=== PATIENT | female | born 1960 ===

== ENCOUNTER 2018-08-15 12:19 | Outpatient (CLI) | payer OTHER ==
[~2018-08-15] VITALS: Ht 167.6 cm; Wt 79.4 kg
[~2018-08-15 12:19] MED LIST: ALBUTEROL0.63 MG/3; LAMICTAL200 M1; LEXAPRO20 MG; RISPERDAL1 MG; SEROQUEL25 MG; SPIRIVA RESPIMAT4 G1; VOLTAREN-XR100 MG PO; ZANAFLEX4 MG PO
== END 2018-08-15 12:35 | disposition home or self-care (01) ==
LOC: OFIC 805 12:19
DX: R49.0 Dysphonia (principal); K21.0 Gastro-esophageal reflux disease with esophagitis; H61.23 Impacted cerumen, bilateral; R42 Dizziness and giddiness

== ENCOUNTER 2019-09-02 20:21 | Emergency (ER) | payer OTHER ==
[~2019-09-02] VITALS: Ht 167.6 cm; Wt 79.4 kg
[2019-09-02] MEDS ORDERED: COZAAR25 MG (20:49)
== END 2019-09-03 01:37 | disposition home or self-care (01) ==
LOC: ER 20:21
DX: R55 Syncope and collapse (principal); I95.89 Other hypotension; F41.8 Other specified anxiety disorders

== ENCOUNTER 2020-02-13 10:13 | Outpatient (CLI) | payer OTHER ==
[~2020-02-13 10:13] MED LIST changes: +COZAAR25 MG
== END 2020-02-13 10:17 | disposition home or self-care (01) ==
LOC: NUCLEAR 10:13
PROVIDERS: ATTEND Internal Medicine Cardiovascular Disease
DX: I47.1 Supraventricular tachycardia (principal)